=== PATIENT | male | born 1975 | race Caucasian/White ===

== ENCOUNTER 2020-11-18 17:41 | Emergency (ER) | payer OTHER ==
[~2020-11-18] VITALS: Ht 182.9 cm; Wt 94.3 kg
[2020-11-18 18:06] LABS: BILIRUBIN,URINE MODERATE (NEGATIVE); COLOR,URINE YELLOW (YELLOW); LEUKOCYTE ESTERASE ,URINE Negative (NEGATIVE); NITRITE, URINE Negative (NEGATIVE); PH,URINE 5.5 (5.0-8.0); PROTEIN,URINE 30 mg/dl (NEGATIVE); UGLUCOSE Negative (NEGATIVE)
[2020-11-18 18:11] LABS: BASOPHILS % (AUTO) 0.4 % (0.0-2.0); EOSINOPHILS % (AUTO) 0.2 % (0.0-6.0); HEMATOCRIT 52 % (39-51); HEMOGLOBIN 17.5 g/dL (13.5-17.5); LYMPHOCYTES # (AUTO) 1.1 K/uL (0.8-4.8); LYMPHOCYTES % (AUTO) 8.5 % (20.0-44.0); MEAN CORPUSCULAR HGB CONC 34 g/dl (31.0-36.0); MEAN CORPUSCULAR VOLUME 94 fL (80-96); MONOCYTES # (AUTO) 0.4 K/uL (0.1-1.30); MONOCYTES % (AUTO) 3.4 % (2.0-12.0); NEUTROPHILS # (AUTO) 11.4 K/uL (1.8-8.9); NEUTROPHILS % (AUTO) 87.5 % (43.0-81.0); PLATELET COUNT (AUTO) 256 K/uL (150-450); RED BLOOD CELL COUNT(AUTO) 5.58 MIL/uL (4.5-6.0)
[2020-11-18 18:17] LABS: BACTERIA,URINE Rare /HPF (None Seen); RBC,URINE NONE SEEN /HPF (0-2); SQUAMOUS EPITHELIAL CELL,UR Few /HPF (None Seen); WBC,URINE NONE SEEN /HPF (0-3)
[2020-11-18] MEDS ORDERED: KETOROLAC TROMETHAMINE 15 MG/ML VIAL ONE (18:17)
[2020-11-18] MEDS ORDERED: HYDROMORPHONE 1 MG/1 ML DISP.SYRIN ONE (18:18)
[2020-11-18 18:26] LABS: CALCIUM, SERUM 9.9 mg/dL (8.5-10.1); CREATININE 1.3 mg/dL (0.6-1.3)
[2020-11-18] MEDS ORDERED: KETOROLAC TROMETHAMINE INJ 30 MG/ML VIAL IV ONE (18:30)
[2020-11-18] MEDS ORDERED: HYDROMORPHONE 1 MG/1 ML DISP.SYRIN IV ONE (18:30)
[2020-11-18 18:32] LABS: ALBUMIN 4.7 g/dL (3.4-5.0); BILIRUBIN,DIRECT 0.2 mg/dL (0.0-0.2); BILIRUBIN,TOTAL 1.2 mg/dL (0.2-1.0); TOTAL PROTEIN, SERUM 8.6 g/dL (6.4-8.2)
[2020-11-18] MEDS ORDERED: IOHEXOL-300 100 ML VIAL IV ONE (18:38)
[2020-11-18] MEDS ORDERED: IV NS 0.9% 250 ML IV ONE (18:39)
--- NOTE | 2020-11-18 19:05 | NUR ---
45 YEARS OLD MALE PRESENTS TO ER WITH LEFT LOWER QUADRANT PAIN, MEDS GIVEN PRESCRIBED, REASSESS PATIENT VERBALIZE FEELING BETTER, VITAL STABLE.
[2020-11-18] MEDS ORDERED: CIPR500T5 PO (19:26)
[2020-11-18] MEDS ORDERED: HYDR-4275 PO (19:27)
[2020-11-18] MEDS ORDERED: TAMS-12 PO (19:27)
--- NOTE | 2020-11-18 19:40 | NUR ---
Patient discharged to home in stable condition. Written and verbal after care instructions given. Patient verbalizes understanding of instruction. IV removed. Catheter intact and site benign. Pressure and 4x4 applied to site. No bleeding noted.
[2020-11-18 20:01] VITALS: BP 121/70
== END 2020-11-18 20:01 | disposition home or self-care (01) ==
LOC: ER 17:41
DX: N20.1 Calculus of ureter (principal)
CPT/HCPCS: 36415; 74177; 80048; 80076; 81001; 83690; 85025; 96374; 96375; 99285; J1170; J1885; J7050; Q9967

== ENCOUNTER 2022-10-07 13:09 | Emergency (ER) | payer OTHER ==
[~2022-10-07] VITALS: Ht 177.8 cm; Wt 90.7 kg
[~2022-10-07 13:09] MED LIST: CIPR500T5 PO; HYDR-4275 PO; TAMS-12 PO
--- NOTE | 2022-10-07 13:10 | NUR ---
BIBS FOR LEFT SIDED KIDNEY PAIN. PER PATIENT HAS BEEN TO [facility] ON TUESDAY AND WAS DIAGNOSED WITH LEFT SIDED KIDNEY STONE. A/O X 3, ABLE TO MAKE NEEDS KNOWN, TOLERATING WELL ON ROOM AIR.
[2022-10-07] MEDS ORDERED: KETOROLAC TROMETHAMINE INJ 30 MG/ML VIAL IV ONE (13:30)
[2022-10-07] MEDS ORDERED: IV NS 0.9% 500 ML BAG IV ONE (13:30)
[2022-10-07 13:31] VITALS: BP 115/66; TEMP 98.1
--- NOTE | 2022-10-07 13:43 | NUR ---
Blair armstrong in [facility] - 10/07/22 at 1600 by GWEN 20 g L AC
--- NOTE | 2022-10-07 13:50 | NUR ---
BLOOD SAMPLES OBTAINED
[2022-10-07 13:51] LABS: BILIRUBIN,URINE NEGATIVE (NEGATIVE); COLOR,URINE YELLOW (YELLOW); LEUKOCYTE ESTERASE ,URINE NEGATIVE (NEGATIVE); NITRITE, URINE NEGATIVE (NEGATIVE); PROTEIN,URINE NEGATIVE (NEGATIVE); UGLUCOSE NEGATIVE (NEGATIVE); UROBILINOGEN,URINE 0.2 EU/dL (0.2)
[2022-10-07 13:52] LABS: BASOPHILS # (AUTO) 0.1 K/uL (0.0-0.2); BASOPHILS % (AUTO) 0.6 % (0.0-2.0); EOSINOPHILS % (AUTO) 1.9 % (0.0-6.0); HEMATOCRIT 48 % (39-51); HEMOGLOBIN 16.4 g/dL (13.5-17.5); LYMPHOCYTES # (AUTO) 1.4 K/uL (0.8-4.8); MEAN CORPUSCULAR HGB CONC 34 g/dl (31.0-36.0); MEAN CORPUSCULAR VOLUME 92 fL (80-96); MONOCYTES # (AUTO) 0.8 K/uL (0.1-1.30); MONOCYTES % (AUTO) 8.7 % (2.0-12.0); NEUTROPHILS # (AUTO) 6.5 K/uL (1.8-8.9); NEUTROPHILS % (AUTO) 72.8 % (43.0-81.0); PLATELET COUNT (AUTO) 264 K/uL (150-450); RED BLOOD CELL COUNT(AUTO) 5.18 MIL/uL (4.5-6.0); WHITE BLOOD COUNT (AUTO) 8.9 K/uL (4.3-11.0)
[2022-10-07] MEDS ORDERED: KETOROLAC TROMETHAMINE 15 MG/ML VIAL ONE (13:52)
--- NOTE | 2022-10-07 14:00 | NUR ---
URINE SAMPLE OBTAINED
[2022-10-07 14:04] LABS: BACTERIA,URINE Rare /HPF (None Seen); SQUAMOUS EPITHELIAL CELL,UR Few /HPF (None Seen); WBC,URINE 0-2 /HPF (0-3)
[2022-10-07 14:25] LABS: CALCIUM, SERUM 9.8 mg/dL (8.5-10.1); CREATININE 1.6 mg/dL (0.6-1.3); POTASSIUM 3.7 mmol/L (3.5-5.1)
[2022-10-07 14:31] LABS: ALBUMIN 4.1 g/dL (3.4-5.0); BILIRUBIN,DIRECT 0.3 mg/dL (0.0-0.2); TOTAL PROTEIN, SERUM 8.4 g/dL (6.4-8.2)
--- NOTE | 2022-10-07 15:37 | NUR ---
CALLED [facility] [phone] WILL CALL BACK.
--- NOTE | 2022-10-07 15:50 | NUR ---
DR. GUZMÁN FROM [facility] SPEAKING WITH DR. ORANTES.
--- NOTE | 2022-10-07 16:57 | NUR ---
PT ACCEPTED TO [facility] UNDER DR. CORREA. TRANSPORT WITH [facility] ETA [id number] PLEASE CALL [phone] FOR REPORT.
--- NOTE | 2022-10-07 17:40 | NUR ---
REPORT GIVEN TO UZMA CHÁVEZ
--- NOTE | 2022-10-07 17:41 | NUR ---
Patient discharged to care of transportation in stable condition. Patient en route to [facility], report called ahead to UZMA Kendall. Written and verbal after care instructions given. Patient verbalizes understanding of instruction.
== END 2022-10-07 17:43 | disposition short-term general hospital (02) ==
LOC: ER 13:21
DX: N20.2 Calculus of kidney with calculus of ureter (principal); F17.200 Nicotine dependence, unspecified, uncomplicated; Z79.899 Other long term (current) drug therapy
CPT/HCPCS: 99285; 74176; 96374; 96361; 85025; 80048; 87086; 83690; 80076; 81001; 36415; 85730; J7030; J7040; J1885